=== PATIENT | female | born 1970 | race Caucasian/White ===

== ENCOUNTER 2018-06-16 18:15 | Emergency (ER) | payer OTHER ==
[~2018-06-16] VITALS: Ht 162.6 cm; Wt 120.2 kg
[~2018-06-16 18:15] MED LIST: ADVAIR 500-501 EACH INH; ALBUTEROL2.5 MG/31 INH; AMBIEN 5 MG TABL5 M1 PO; AUGMENTIN 875-1 EACH PO; AUGMENTIN 875875 MG PO; BACLOFEN 10MG T10 MG PO; BANOPHEN25 M1 PO; BREO ELLIPTA 11 EACH IH; CERTAVITE SR-A1 EACH PO; CHANTIX1 MG PO; COUMADIN 3 MG TA3 M1 PO; CULTURELLE1 EACH PO; FLUCONAZOLE 10100 MG PO; FORTAZ IV; IBUPROFEN 200200 M1 PO; IRON325 PO; MS CONTIN15 MG PO; NYAMYC15 GM TOP; OMEPRAZOLE20 M2 PO; ONDANSETRON HCL4 M2 PO; OXYBUTYNIN 5 MG5 M2 PO; OXYCODONE HCL 55 MG PO; OXYCONTIN10 M1 PO; PRO-STAT LIQUID30 M1 PO; PROTONIX40 M4 PO; VALIUM5 MG PO; VANCOMYCIN1.25 GM/21 IV; VITAMIN D3400 UNIT PO; VITAMINC500 PO; WELLBUTRIN SR150 MG PO; XOPENEX 0.63 MG/3 M1 INH; ZOSYN 3.373.375 GM/1 IV; ZOSYN 3.3753.375 GM IV
--- NOTE | 2018-06-16 19:03 | NUR ---
LAB CALLED TO DRAW BLOOD AT THIS TIME
[2018-06-16 19:04] VITALS: BP 80/32
--- NOTE | 2018-06-16 21:05 | NUR ---
SEE CODE BLUE FLOWSHEET. PATIENT UNRESPONSIVE. CPR STARTED.
[2018-06-16 21:16] LABS: PLATELET COUNT 22 thou/uL (150-400); WBC 10.7 thou/uL (4.0-11.0)
--- NOTE | 2018-06-16 21:17 | NUR ---
PATIENT WITH EYES OPENED BRIEFLY, NOW NONRESPONSIVE. DIAPHORETIC. CODE BLUE, CPR RESUMED.
[2018-06-16 21:18] LABS: MCH 31.3 pg (26.0-34.0); MCHC 28.6 g/dL (28.0-37.0); MCV 109.7 fL (80.0-100.0); RBC 1.18 mil/uL (4.20-5.00); RDW 19.5 % (10.5-14.5)
[2018-06-16 21:21] LABS: HEMATOCRIT 12.9 % (37.0-47.0); HEMOGLOBIN 3.7 gm/dL (12.0-15.0)
[2018-06-16 21:34] VITALS: BP 0/0
[2018-06-16 21:34] LABS: ALBUMIN < 0.6 g/dL (3.4-5.0); BUN 19 mg/dL (7-18); CHLORIDE 125 mmol/L (98-107); CREATININE 0.1 mg/dL (0.6-1.0); GLUCOSE 40 mg/dL (74-106); SGOT 20 U/L (15-37); SGPT 12 U/L (30-65); SODIUM 147 mmol/L (136-145); TOTAL BILIRUBIN 0.2 mg/dL (<0.1-1.0); TOTAL PROTEIN < 2.0 g/dL (6.4-8.2); TROPONIN-I 0.09 ng/mL (<0.06)
--- NOTE | 2018-06-16 21:34 | NUR ---
CODE BLUE CALLED AT
--- NOTE | 2018-06-16 21:34 | NUR ---
EFFORTS TERMINATED. TIME OF PER DR CARVER.
[2018-06-16 21:35] LABS: ANION GAP 17 mmol/L (7-16)
[2018-06-16 21:36] LABS: CO2 5 mmol/L (21-32); POTASSIUM 2.2 mmol/L (3.5-5.1)
[2018-06-16 21:37] LABS: CALCIUM < 5.0 mg/dL (8.5-10.1); MAGNESIUM 0.4 mg/dL (1.8-2.4)
--- NOTE | 2018-06-16 22:00 | NUR ---
DAUGHTER AWARE OF PATIENT'S BY DR CARVER. DR JUAREZ NOTIFIED OF SAME PER DR CARVER.
[2018-06-16 22:11] LABS: ABSOLUTE NEUTROPHILS 6.3 thou/uL (1.4-8.2); CORRECTED WBC 8.8 thou/uL (4.0-11.0); METAMYELOCYTES 1 %; NUCLEATED RBCS 22 /100WBC
[2018-06-16 22:12] LABS: ANISOCYTOSIS 2+; MACROCYTES 2+; PLATELET ESTIMATE MARKEDLY DECREASED; POLYCHROMASIA 1+
--- NOTE | 2018-06-17 08:00 | EKG ---
[address] [place] [address] ELECTROCARDIOGRAM REPORT Name: DRAKE DE LA TORRE Room #: DEP [facility]#: [id number] ������������������ Admission: 06/16/18 ������������������ Attend Phys: Discharge: 06/16/18 ������������������ Date of : 70 Report #: [id number] ����������������������������������������������������������������� [id number] THIS REPORT FOR: //name// [facility] ED Test Date: 2018-06-16 Test Time: 18:23:02 Pat Name: DRAKE DE LA TORRE Department: Room: 170 Gender: F [employer]ener: LUIS : 1970 Requested By: See Treviño Order Number: [id number] MD: Jerome Vegas Measurements Intervals [place] Rate: 80 P: 73 DE: 118 QRS: 60 QRSD: 81 T: 59 QT: 385 QTc: 445 Interpretive Statements Sinus rhythm Borderline short DE interval No previous ECG available for comparison Electronically Signed On 06-17-2018 8:00:10 CDT by Jerome Vegas [email or web address] ��������������������������������������������� <ELECTRONICALLY SIGNED> ���������������������������������������� By: Jerome Vegas MD, [facility] ��������������������������������������������� 06/17/18 0800 1823 182 Jerome Vegas MD, FACC /EPI
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
--- NOTE | 2018-06-23 12:00 | D ---
[facility] [place] [address] DISCHARGE SUMMARY Name: DRAKE DE LA TORRE Room #: DEP [facility]#: [id number] Admission: 06/16/18 ������������������ Attend Phys: Discharge: 06/16/18 ������������������ Date of : 70 Report #: [id number] THIS REPORT FOR: //name// CC: Heriberto Escudero DATE OF SERVICE: 06/17/2018 FINAL DIAGNOSES: 1. Generalized sepsis. 2. Healthcare-associated pneumonia. 3. Acute on chronic hypoxic respiratory failure. 4. Anemia of chronic disease. 5. Electrolyte imbalance. 6. Chronic paraplegia. 7. Ventilator dependence. 8. Colostomy in place. 9. Ileal conduit in place. 10. Multiple wounds. 11. Severe protein-calorie malnutrition. HOSPITAL COURSE: The patient was transferred emergently from her long-term care ventilator unit for evaluation of hypoxia. She developed hypotension and bradycardia during her stay. I assessed the patient in the ER and worked with the ER physician. I spoke to her mother via phone in the nursing facility and reviewed all available data. Unfortunately, her condition deteriorated with hypotension and bradycardia requiring a code blue intervention. Routine medications and ACLS were provided by the ER physician. This occurred 3 times and by the third time, she did not respond to usual treatments, and she was pronounced due to her underlying illness and chronic conditions. ��������������������������������������������� <ELECTRONICALLY SIGNED> ���������������������������������������� By: Rudy Nguyễn MD ��������������������������������������������� 06/23/18 1200 0953 [id number] Rudy Nguyễn MD /thi
== END 2018-06-16 21:34 ==
LOC: ER 18:15 → EROBS 20:12 → ER 21:34
PROVIDERS: Internal Medicine Geriatric Medicine
DX: A41.9 Sepsis, unspecified organism (principal); J96.21 Acute and chronic respiratory failure with hypoxia; G82.20 Paraplegia, unspecified; L98.419 Non-pressure chronic ulcer of buttock with unspecified severity; J18.8 Other pneumonia, unspecified organism; I95.9 Hypotension, unspecified; J45.909 Unspecified asthma, uncomplicated; Z79.899 Other long term (current) drug therapy; Z93.3 Colostomy status; Z88.6 Allergy status to analgesic agent